=== PATIENT | female | born 1980 | race Caucasian/White ===

== ENCOUNTER 2024-04-19 06:38 | Emergency (ER) | payer MEDICAID, OTHER ==
[~2024-04-19] VITALS: Ht 165.1 cm; Wt 68.0 kg
[2024-04-19 06:47] VITALS: O2SAT 97
[2024-04-19 07:50] LABS: BASOPHILS % 0.7 % (0.0-2.0); EOSINOPHILS % 1.8 % (0.0-5.0); HEMOGLOBIN. 10.9 g/dL (12.0-16.0); LYMPHOCYTES % 11.1 % (20.0-50.0); MEAN CORPUSCULAR HEMOGLOBIN 30.1 pg (28.0-32.0); MEAN CORPUSCULAR HGB CONC 33.1 g/dL (31.0-37.0); MEAN CORPUSCULAR VOLUME 91.1 fL (81.0-99.0); MEAN PLATELET VOLUME 7.8 fl (7.4-10.4); MONOCYTES % 9.4 % (2.0-8.0); PLATELET 376 x1000/uL (130-400); RED BLOOD CELL COUNT 3.62 mill/uL (4.2-5.4); RED CELL DISTRIBUTION WIDTH 22.1 % (11.6-14.6); WHITE BLOOD COUNT 9.4 x1000/uL (4.5-11.0)
[2024-04-19] MEDS: MORPHINE SULFATE 4 MG/ML INJ (FOR IV/IM USE) IV STA (07:50)
[2024-04-19] MEDS: SODIUM CHLORIDE 0.9% 1,000 ML IV ONE (07:51)
[2024-04-19 07:54] LABS: ADD RBC MORPHOLOGY YES; DIFFERENTIAL COMMENT 1
[2024-04-19 07:55] LABS: CHLORIDE 106 mEq/L (98-107); POTASSIUM 3.7 mEq/L (3.5-5.1); SODIUM 136 mEq/L (136-145)
[2024-04-19 07:56] LABS: CALCIUM 8.6 mg/dL (8.7-10.4); CARBON DIOXIDE 25 mEq/L (21-32)
[2024-04-19 08:01] LABS: CREATININE 0.6 mg/dL (0.6-1.0); GLUCOSE 118 mg/dL (70-105); UREA NITROGEN BLOOD 16 mg/dL (9-23)
[2024-04-19 08:03] LABS: ALANINE AMINOTRANSFERASE 106 IU/L (10-49); ALBUMIN 3.1 g/dL (3.2-4.8); ASPARTATE AMINOTRANSFERASE 235 IU/L (<34); BILIRUBIN TOTAL 5.3 mg/dL (0.1-1.0)
[2024-04-19 08:04] LABS: D-DIMER 2.04 mg/L FEU (<0.50); PROTEIN TOTAL 6.9 g/dL (6.0-8.3); PROTHROMBIN TIME 10.9 sec (9.6-11.0)
[2024-04-19 08:07] LABS: ETHANOL BLOOD < 10 mg/dL (<10); TROPONIN I HIGH SENSITIVITY < 4 ng/L (3.0-34)
[2024-04-19 10:34] LABS: TROPONIN I HIGH SENSITIVITY < 4 ng/L (3.0-34)
[2024-04-19 10:34] LABS: HCG SCREEN NEGATIVE
[2024-04-19 11:21] LABS: PROTHROMBIN TIME 10.9 sec (9.6-11.0)
[2024-04-19 12:01] LABS: ANISOCYTOSIS 3+; PLATELET ESTIMATE NORMAL
[2024-04-19 12:02] LABS: GIANT PLATELETS FEW
[2024-04-19] MEDS: MORPHINE SULFATE 4 MG/ML INJ (FOR IV/IM USE) IV ONE ×2 (13:16→19:32)
[2024-04-19 17:59] LABS: CLARITY URINE CLOUDY (CLEAR); COLOR URINE DARK YELLOW (YELLOW); GLUCOSE URINE NEGATIVE (NEGATIVE); KETONES URINE NEGATIVE (NEGATIVE); LEUKOCYTE ESTERASE URINE TRACE (NEGATIVE); NITRITE URINE POSITIVE (NEGATIVE); OCCULT BLOOD URINE NEGATIVE (NEGATIVE); PH URINE 6.5 (4.5-8.0); PROTEIN URINE 1+ (NEGATIVE); SPECIFIC GRAVITY URINE 1.042 (1.005-1.030)
[2024-04-19] MEDS: PIPERACILLIN/TAZO 3.375G/50ML 50 ML IV STA (18:07)
[2024-04-19 18:08] LABS: *AMPHETAMINES SCREEN URINE NEGATIVE (NEGATIVE); *BARBITURATES SCREEN URINE NEGATIVE (NEGATIVE); *BENZODIAZEPINES SCREEN URINE NEGATIVE (NEGATIVE); *COCAINE SCREEN URINE NEGATIVE (NEGATIVE); METHADONE URINE SCREEN NEGATIVE (NEGATIVE)
[2024-04-19 18:09] LABS: CANNABINOID URINE SCREEN NEGATIVE (NEGATIVE); ECSTASY MDMA SCREEN URINE NEGATIVE (NEGATIVE); OPIATES URINE SCREEN PRESUMPTIVE POSITIVE (NEGATIVE); PHENCYCLIDINE URINE SCREEN NEGATIVE (NEGATIVE)
[2024-04-19 18:11] LABS: RBC URINE 0-2 /hpf (0-2); WBC URINE 0-2 /hpf (0-2)
[2024-04-19 18:12] LABS: BACTERIA URINE 1+; SQUAMOUS EPITHELIAL CELL URINE 1+ /lpf (RARE/1+)
[2024-04-19] MEDS: IOHEXOL-350 100 ML BOTTLE ONE (19:40)
[2024-04-19 21:39] VITALS: TEMP 36.89184
[2024-04-19 23:39] VITALS: BP 144/76; PULSE 114; RESP 21; O2SAT 97
== END 2024-04-20 01:05 | disposition short-term general hospital (02) ==
LOC: ER 06:38 → CANBEDREQ 04-20 01:13
DX: J18.9 Pneumonia, unspecified organism (principal)
CPT/HCPCS: 80076; 80305; 80048; 81003; 80320; 84703; 83880; 83605; 83690; 85025; 85379; 85610; 86850; 86900; 86901; 84484; 36415; 71045; 71275; 74177; 96361; 96365; 96375; 96376; 99291; Q9967; J2543; J2270; J7030; Z7610 ×6; G0480

== ENCOUNTER 2024-12-29 18:28 | Inpatient (IN) | payer OTHER ==
[~2024-12-29] VITALS: Ht 170.2 cm; Wt 85.7 kg
[2024-12-29] MEDS ORDERED: FAMOTIDINE 20MG/2ML VIAL IV STA (18:34)
[2024-12-29] MEDS ORDERED: METOCLOPRAMIDE HCL 10MG/2ML VIAL IV STA (18:34)
[2024-12-29] MEDS: FAMOTIDINE 20MG/2ML VIAL IV NR (18:34)
[2024-12-29] MEDS ORDERED: MORPHINE SULFATE 2 MG/ML INJ (NOT FOR IM USE) IV ONE ×2 (18:45→23:00)
[2024-12-29 19:13] LABS: BASOPHILS % 0.2 % (0.0-2.0); EOSINOPHILS % 0.3 % (0.0-5.0); HEMATOCRIT. 46.3 % (36.0-48.0); HEMOGLOBIN. 16.0 g/dL (12.0-16.0); LYMPHOCYTES % 16.5 % (20.0-50.0); MEAN PLATELET VOLUME 7.5 fl (7.4-10.4); MONOCYTES % 3.5 % (2.0-8.0); NEUTROPHILS % 79.5 % (40.0-76.0); PLATELET 227 x1000/uL (130-400); RED BLOOD CELL COUNT 5.12 mill/uL (4.2-5.4); RED CELL DISTRIBUTION WIDTH 12.8 % (11.6-14.6)
[2024-12-29 19:22] LABS: HCG SCREEN NEGATIVE
[2024-12-29 19:25] LABS: CREATININE 0.8 mg/dL (0.6-1.0); UREA NITROGEN BLOOD 11 mg/dL (9-23)
[2024-12-29 19:26] LABS: ETHANOL BLOOD < 10 mg/dL (<10); TROPONIN I HIGH SENSITIVITY < 4 ng/L (3.0-34)
[2024-12-29 19:27] LABS: ASPARTATE AMINOTRANSFERASE 53 IU/L (<34); BILIRUBIN DIRECT 0.4 mg/dL (<=3.0); BILIRUBIN TOTAL 1.0 mg/dL (0.1-1.0); PROTEIN TOTAL 7.4 g/dL (6.0-8.3)
[2024-12-29] MEDS: METOCLOPRAMIDE HCL 10MG/2ML VIAL IV NR (21:00)
[2024-12-29] MEDS: SODIUM CHLORIDE 0.9% 1,000 ML IV ONE (21:00)
[2024-12-29] MEDS: MORPHINE SULFATE 2 MG/ML INJ (NOT FOR IM USE) IV NR (21:00)
[2024-12-29] MEDS: IOHEXOL-300 100 ML BOTTLE ONE (22:08)
[2024-12-29] MEDS ORDERED: PIPERACILLIN/TAZO 3.375G/50ML 50 ML IV SCH (23:00)
[2024-12-30] MEDS: METRONIDAZOLE 500 MG PREMIX 100 ML IV ONE (00:55)
[2024-12-30] MEDS: MORPHINE SULFATE 2 MG/ML INJ (NOT FOR IM USE) IV NR (01:25)
[2024-12-30 01:55] VITALS: BP 138/84; PULSE 62; RESP 18; TEMP 36.2
[2024-12-30] MEDS ORDERED: ONDANSETRON HCL 8MG TABLET PO PRN (02:45)
[2024-12-30] MEDS ORDERED: DEXT 5%/0.45% NACL KCL 20MEQ/L 1,000 ML IV ONE (03:00)
[2024-12-30] MEDS ORDERED: NALOXONE HCL 0.4MG/ML VIAL IV PRN (03:15)
[2024-12-30] MEDS: DEXT 5%/0.45% NACL KCL 20MEQ/L 1,000 ML IV SCH (03:49)
[2024-12-30] MEDS: PIPERACILLIN/TAZO 3.375G/50ML 50 ML IV SCH (05:51)
[2024-12-30 08:00] VITALS: BP 114/75; PULSE 81; RESP 18; TEMP 37.2; O2SAT 98
[2024-12-30 10:43] LABS: BASOPHILS % 0.8 % (0.0-2.0); EOSINOPHILS % 2.1 % (0.0-5.0); HEMATOCRIT. 46.6 % (36.0-48.0); HEMOGLOBIN. 15.7 g/dL (12.0-16.0); LYMPHOCYTES % 28.7 % (20.0-50.0); MEAN PLATELET VOLUME 8.2 fl (7.4-10.4); MONOCYTES % 6.3 % (2.0-8.0); NEUTROPHILS % 62.1 % (40.0-76.0); PLATELET 185 x1000/uL (130-400); RED BLOOD CELL COUNT 5.10 mill/uL (4.2-5.4); RED CELL DISTRIBUTION WIDTH 13.1 % (11.6-14.6)
[2024-12-30 11:14] LABS: CREATININE 0.7 mg/dL (0.6-1.0); UREA NITROGEN BLOOD 8 mg/dL (9-23)
[2024-12-30 11:16] LABS: ASPARTATE AMINOTRANSFERASE 40 IU/L (<34)
[2024-12-30 11:17] LABS: BILIRUBIN TOTAL 1.0 mg/dL (0.1-1.0); PROTEIN TOTAL 7.0 g/dL (6.0-8.3)
[2024-12-30] MEDS: MORPHINE SULFATE 2 MG/ML INJ (NOT FOR IM USE) IV PRN (11:35)
[2024-12-30 12:00] VITALS: BP 103/66; PULSE 56; RESP 17; RESP 7; TEMP 36.7; O2SAT 98
[2024-12-30] MEDS ORDERED: HYDROCODONE/ACETAMINOPHEN 5/325MG TABLET PO PRN (14:00)
[2024-12-30 16:00] VITALS: BP 131/53; PULSE 61; RESP 17; TEMP 36.4; O2SAT 99
[2024-12-30 20:00] VITALS: BP 123/77; PULSE 59; RESP 20; TEMP 36.3; O2SAT 98
[2024-12-30 21:30] LABS: INR 1.0
[2024-12-31] VITALS: BP 122/69; PULSE 63; RESP 20; TEMP 36.3; O2SAT 95
[2024-12-31 04:00] VITALS: BP 117/73; PULSE 72; RESP 20; TEMP 36.2; O2SAT 96
[2024-12-31 08:00] VITALS: BP 112/59; PULSE 53; RESP 18; TEMP 36.6; O2SAT 97
[2024-12-31 12:00] VITALS: BP 119/56; PULSE 51; RESP 18; TEMP 36.6; O2SAT 100
[2024-12-31 16:00] VITALS: BP 112/70; PULSE 78; RESP 18; TEMP 36.4; O2SAT 100
[2024-12-31 18:00] VITALS: BP 141/75; PULSE 78; TEMP 97.3; O2SAT 100
== END 2024-12-31 19:00 | disposition short-term general hospital (02) ==
LOC: ER 18:28 → EDBEDREQTM 22:49 → 6EST 23:30 → EDBEDREQSVC 23:35 → EDBEDREQ 23:35 → EDBEDREQTM 23:35 → ENRESERV 12-30 00:48
PROVIDERS: ADMIT Internal Medicine; ATTEND Internal Medicine
DX: K80.62 Calculus of gallbladder and bile duct with acute cholecystitis without obstruction (principal); K75.0 Abscess of liver; I10 Essential (primary) hypertension; B19.20 Unspecified viral hepatitis C without hepatic coma; E66.9 Obesity, unspecified; Z68.29 Body mass index [BMI] 29.0-29.9, adult
CPT/HCPCS: 36415; 74177; 76700; 80048; 80053; 80076; 80320; 84484; 84703; 85025; 99291; J1308; J2270; J2543; J2765; J3490; J7030; Q9967; G0480